=== PATIENT | male | born 1990 | race Caucasian/White ===

== ENCOUNTER 2019-04-01 07:44 | Emergency (ER) | payer OTHER, SELFPAY ==
[2019-04-01 07:59] VITALS: BP 121/77; PULSE 58; RESP 16; TEMP 36.6; O2SAT 99
--- NOTE | 2019-04-01 08:46 | ED.GENADUL_ITS ---
Discharge Plan Disposition Patient Disposition: HOME Condition: Stable Discharge Details Chief Complaint: Laceration Clinical Impression: Laceration ED Provider: Tiny Cruz Home Meds and New Rx's Prescriptions: Continued buprenorphine-naloxone [Suboxone] 4-1 mg Film sublingual DAILY RF: 0 Discharge Instructions Instructions: Laceration (ED) Additional Instructions: Keep initial dressing in place for 24 hours. Then will remove initial dressing and begin to wash area gently with soap and water once or twice daily. Apply topical anabolic ointment to the wound before replacing dressing. Observe for any signs of infection, redness, swelling, drainage or pain. For any numbness, tingling or weakness of reevaluation. For any bleeding, swelling or pain have reevaluation Suture removal in 10 to 14 days as discussed. Return sooner if needed Medical Decision Making Patient presents under custody of police after cutting himself in the left EAC. Patient with a wound with minimal bleeding presently. Wound managed appropriately. My attending did also evaluate the wound at the bedside and is comfortable with plan of care and wound management. Patient denies suicidality homicidality however did cut and does have a history of cutting in the past. Patient reports due to being upset about disagreement with mother of his child and his 2-year-old child who he from currently. Patient did cut superficially then cut a second time until he was able to identify bleeding. This to me is concerning behavior for self-harm I did speak with the officers he reports the will pursue a full psych evaluation when they return and do have psych behavioral health specialist to do this. I again discussed this with my attending who is comfortable with the plan of care. HPI General Date/Time Provider Initiated Documentation: 04/01/19 08:04 . HPI Narrative: Patient presents for complaints of a laceration to his left arm. Patient reports he self-inflicted wound as he is upset about his 2-year-old son whom he is from and he is having disagreements with the mother. Patient does have a history of cutting in the past. Patient lacerated left AC area with a razor blade once after he saw no significant bleeding he caught a second time in the same direction to attempt to cut the vein. Patient denies suicidality or homicidality at this time. Patient is accompanied by officers and he is cu rrently coughed to the bed. Patient denies any other medical concerns or complaints at this time. Denies numbness, tingling or weakness of the arm. Related Data Home Medications Medication Instructions Recorded Confirmed buprenorphine-naloxone [Suboxone] film SUBLINGUAL DAILY 04/01/19 Allergies Allergy/AdvReac Type Severity Reaction Status Date / Time No Known Allergies Allergy Unverified 04/01/19 08:02 General Stated Complaint: Laceration ESPERANZA: 4 Review of Systems Review of Systems Narrative: CONSTITUTIONAL: The patient denies fevers, chills. EYES: Denies vision changes, blurry vision, or eye pain. ENT: Denies hearing changes, tinnitus, vertigo, sore throat. CARDIAC: Denies chest pain, SOB. RESPIRATORY: Denies cough, sputum. Denies difficulty breathing. GASTROINTESTINAL: Denies abdominal pain, changes in bowel, vomiting or nausea. GENITOURINARY: Denies dysuria, or frequency of urination. MUSCULOSKELETAL: Denies Joint pain, gait changes. NEUROLOGIC: Denies headaches, Denies focal weakness. Denies numbness. INTEGUMENT: Denies rashes. Laceration, left AC PSYCHIATRIC: Denies behavior changes. Denies anxiety or depression. ENDOCRINOLOGY: Denies fatigue. PSYCHIATRY: Denies depression, agitation or anxiety Exam Narrative Exam Narrative: CONST: Healthy appearing patient, in no acute distress. Well hydrated. Alert and alert. HENMT: Head nomocephalic, normal to inspection. Atraumatic. Hearing grossly normal. EYES: General normal appearance. Alignment normal. Eyelids normal. Conjunctiva normal. NECK: Normal visual inspection. FROM. Trachea midline. No Midline tenderness. CHEST: Normal insepection of the chest. RESP: Normal respiratory effort. Speaking full sentences. No cough. No audible wheezing. No retractions. CARDIO: No JVD. MUSCULOSKELETAL: Normal Gait. FROM of all extremities. Full range of motion left arm. No pain with palpation. Pulses intact distally both radial and ulnar. Cap refill normal distally. Sensation intact distally. SKIN: Normal. Dry. No rashes. Left AC with a 3 cm laceration which is linear. Laceration does extend through the subcutaneous. Clotted blood present at first evaluation. Further evaluation reveals slow venous bleeding. No pulsatile bleeding. No significant pain with palpation of the site. NEURO: Alert and awake. Speech clear. PSYCH: Normal affect. Cooperative. Course Vital Signs Vital signs: Vital Signs Temperature 36.6 C 04/01/19 07:59 Pulse 58 L 04/01/19 07:59 Respiratory Rate 16 04/01/19 07:59 Blood Pressure 121/77 04/01/19 07:59 Pulse Oximetry 99 04/01/19 07:59 Temperature 36.6 C 04/01/19 07:59 Temperature Source Skin 04/01/19 07:59 Pulse 58 L 04/01/19 07:59 Respiratory Rate 16 04/01/19 07:59 Respiratory Effort Non-Labored 04/01/19 07:59 Blood Pressure 121/77 04/01/19 07:59 Blood Pressure Position Sitting 04/01/19 07:59 Pulse Oximetry 99 04/01/19 07:59 Oxygen Delivery Method Room Air 04/01/19 07:59 Oxygen Flow Rate 0 04/01/19 07:59 Pain Level 0 04/01/19 07:59 Procedures Laceration Laceration 1: Site: upper extremity (Left AC) Side (If applicable): left Size (cm): 3 Description: linear Depth: simple, single layer Local Anesthetic: Lidocaine 1% and with Epi Amount of anesthesia used (mL): 4 Pre-repair: wound explored and irrigated extensively Skin layer closed with: vicryl (Prolene) and other Size (cm): 4-0 Number of sutures: 9 Technique: horizontal mattress Subcutaneous layer closed with: vicryl Size: 5-0 Number of sutures: 1
== END 2019-04-01 09:21 | disposition home or self-care (01) ==
LOC: ER 09:09
PROVIDERS: Emergency Provider Physician Assistant
DX: S51.812A Laceration without foreign body of left forearm, initial encounter (principal); W26.8XXA Contact with other sharp object(s), not elsewhere classified, initial encounter; X78.8XXA Intentional self-harm by other sharp object, initial encounter; Z63.5 Disruption of family by separation and divorce
CPT/HCPCS: 12032

== ENCOUNTER 2020-01-28 18:26 | Emergency (ER) | payer OTHER, SELFPAY ==
[2020-01-28 18:25] VITALS: BP 132/83; PULSE 67; RESP 18; TEMP 36.5; O2SAT 98
--- NOTE | 2020-01-28 18:46 | W.ED.GENAD ---
Discharge Plan Disposition Patient Disposition: [facility] Condition: Improving Discharge Details Chief Complaint: Laceration Clinical Impression: Laceration of left upper extremity Primary Care Provider: [facility] Provider: David Jarrell Home Meds and New Rx's Prescriptions: Continued buprenorphine-naloxone [Suboxone] 4-1 mg Film sublingual DAILY RF: 0 Discharge Instructions Instructions: Laceration (ED) Additional Instructions: You had a tourniquet applied in the prehospital setting for 45 minutes. Your initial exam revealed no left upper extremity radial pulse and lack of significant motor or sensory function of that left hand. Upon removal of the tourniquet you were found to have brisk capillary refill, normal radial pulse, and did not have apparent injury to the radial/ulnar/brachial arteries. Your wound was repaired with 4 interrupted nylon sutures which should be removed in 10 days time. Return if you develop a fever, foul-smelling discharge from the wound, or any other acute concerns. Medical Decision Making 30-year-old male [facility] He states to me that in anger he lacerated his left upper extremity. He was not trying to kill himself and he denies thoughts of harming self or others. He states his anger has resolved. He had a tourniquet applied for 45 minutes to control the bleeding. Upon arrival he had no radial pulse, with near complete paucity of motor and sensory function of the left hand. After tourniquet was removed, the patient had brisk capillary refill, palpable 2+ radial pulse and normal radial/median/ulnar nerve testing of the hand. The wound was anesthetized, irrigated, explored in a bloodless field without evidence of deep tissue injury. Repaired with 4 interrupted nylon sutures. Patient is stable and improved and appropriate for discharge back to group home. He will require removal of the sutures in 10 days time. HPI General Mode of arrival: EMS. Date/Time Provider Initiated Documentation: 01/28/20 18:46. Limitations to Documentation: no limitations. Information obtained by: patient and EMS. History of Present Illness 30 year old M presents to the emergency department with the chief complaint of Laceration left arm, self-inflicted in anger, described as moderate, and is localized to the left and upper extremity. Patient reports no radiation. Patient started experiencing this minute(s) and it has been constant. other things that improve symptom(s), (Tourniquet was placed 45 minutes prior) No exacerbating factors reported . Patient notes no other symptoms.. Patient did receive the following treatments prior to arrival, other (tourniquet) Related Data Home Medications Medication Instructions Recorded Confirmed buprenorphine-naloxone [Suboxone] film SUBLINGUAL DAILY 04/01/19 Allergies Allergy/AdvReac Type Severity Reaction Status Date / Time No Known Allergies Allergy Unverified 01/28/20 18:53 General Stated Complaint: Laceration ESPERANZA: 3 Review of Systems Narrative: Denies other significant medical illness. States tetanus is up-to-date. Exam Narrative Exam Narrative: GEN: awake, alert, oriented 3. Pleasant, well groomed, interactive. HEAD: Normocephalic, atraumatic ENT: Mucous membranes moist, oropharynx unremarkable, External ear exam unremarkable EYES: PERRL, EOMI NECK: Full ROM, no MAXX, no menigismus CHEST/RESP: No respiratory distress EXT: Initial exam: Tourniquet in place on left humerus. Arm cyanotic and no palpable pulse. Patient with poor distal motor function. There is a 2 cm laceration distal to the left AC fossa at the proximal volar radial aspect. After tourniquet removed, 1 palpable radial pulse, 2+ bilateral upper extremity, normal function of radial ulnar and median nerves both motor and sensory. Neuro: Grossly normal neurologic exam, conversant, interactive. Psych: Speech fluent, thoughts congruent, affect normal Course Vital Signs Vital signs: Vital Signs Temperature 36.5 C 01/28/20 18:25 Pulse 67 01/28/20 18:25 Respiratory Rate 18 01/28/20 18:25 Blood Pressure 132/83 01/28/20 18:25 Pulse Oximetry 98 01/28/20 18:25 Temperature 36.5 C 01/28/20 18:25 Temperature Source Skin 01/28/20 18:25 Pulse 67 01/28/20 18:25 Respiratory Rate 18 01/28/20 18:25 Blood Pressure 132/83 01/28/20 18:25 Blood Pressure Position Sitting 01/28/20 18:25 Pulse Oximetry 98 01/28/20 18:25 Oxygen Delivery Method Room Air 01/28/20 18:25 Oxygen Flow Rate 0 01/28/20 18:25 Pain Level 8 01/28/20 18:25 Procedures Laceration Laceration 1: Site: upper extremity Side (If applicable): left Size (cm): 2 Description: linear and clean Depth: simple, single layer Local Anesthetic: Lidocaine 1% Amount of anesthesia used (mL): 2 Pre-repair: wound explored, irrigated extensively and deep structures intact Skin layer closed with: nylon Size (cm): 3-0 Number of sutures: 4 Technique: simple, interrupted
== END 2020-01-28 19:00 | disposition home or self-care (01) ==
LOC: ER 20:01
PROVIDERS: Emergency Provider Emergency Medicine
DX: S51.012A Laceration without foreign body of left elbow, initial encounter (principal); W26.8XXA Contact with other sharp object(s), not elsewhere classified, initial encounter; X78.8XXA Intentional self-harm by other sharp object, initial encounter; R23.0 Cyanosis
CPT/HCPCS: 12001